=== PATIENT | male | born 1965 | race Caucasian/White ===

== ENCOUNTER → 2020-05-10 | Outpatient (CLI) | payer OTHER ==
[~2020-05-10] MED LIST: CIPROFLOXACIN500 M1 PO; FLAGYL500 MG PO; FLEXERIL PO; GLUCOTROL5 MG PO; GLUMETZA1000 PO; LEVAQUIN 750 M750 MG PO; LEVEMIR SUBQ; LIPITOR 20 MG T20 M1 PO; MOBIC15 MG PO; NEURONTIN 300300 M1 PO; PEPTO-BISMOL1 TAB PO; TENORMIN50 MG PO; UNICOMPLEX M TA1 TA1 PO; VICTOZA0.6 MG/0.1 SUBQ; ZANTAC 150MG T150 MG PO
== END ==
LOC: M.ULTRA 05-06 15:30
PROVIDERS: ATTEND Nurse Practitioner Family
DX: M47.816 Spondylosis without myelopathy or radiculopathy, lumbar region (principal); R10.30 Lower abdominal pain, unspecified; M79.645 Pain in left finger(s); M25.551 Pain in right hip